=== PATIENT | female | born 1990 | race Caucasian/White ===

== ENCOUNTER 2020-11-21 14:11 | Emergency (ER) | payer SELFPAY ==
[~2020-11-21] VITALS: Ht 177.8 cm; Wt 143.2 kg
[2020-11-21 14:19] VITALS: TEMP 98
[2020-11-21 15:05] VITALS: BP 134/88
[2020-11-21] MEDS ORDERED: NORCO 325 MG-51 TAB PO (15:14)
[2020-11-21 16:27] VITALS: PULSE 77
== END 2020-11-21 16:27 | disposition home or self-care (01) ==
LOC: COL.ER 14:11
DX: S86.912A Strain of unspecified muscle(s) and tendon(s) at lower leg level, left leg, initial encounter (principal); W18.42XA Slipping, tripping and stumbling without falling due to stepping into hole or opening, initial encounter; Y93.01 Activity, walking, marching and hiking